=== PATIENT | male | born 2000 | race Caucasian/White ===

== ENCOUNTER 2019-10-31 10:58 | Emergency (ER) | payer SELFPAY ==
[2019-10-31 12:12] VITALS: BP 129/87
--- NOTE | 2019-10-31 12:38 | UC ---
Upper Extremity HPI - HPI Summary HPI Summary: Pt presents with c/o left upper arm and pain and occasional paresthesia "pins and needles" and falling asleep feeling over the last few days. Pt denies injury but does report that he recently began a new job that is physically more active than he is used to . - History of Current Complaint Chief Complaint: UCUpperExtremity Stated Complaint: LEFT ARM COMPLAINT Time Seen by Provider: 10/31/19 12:27 Hx Obtained From: Patient ?: No Onset/Duration: Sudden Onset, Lasting Days, Still Present Severity Initially: Mild Severity Currently: Mild Pain Intensity: 4 Location Of Pain: Is Discrete @ - left upper arm, back and radiates to left hand Character: Dull, Aching, Burning Aggravating Factor(s): Movement Alleviating Factor(s): Nothing Associated Signs And Symptoms: Positive: Numbness/Tingling Related History: Dominant Hand Right - Risk Factors Non-Orthopedic Risk Factor: Negative DVT Risk Factors: Negative Septic Arthritis Risk Factor: Negative Compartment Syndrome Risk Factors: Paresthesias - Allergies/Home Medications Allergies/Adverse Reactions: Allergies Allergy/AdvReac Type Severity Reaction Status Date / Time No Known Allergies Allergy Verified 10/31/19 12:13 PMH/Surg Hx/FS Hx/Imm Hx Previously Healthy: Yes - Surgical History Surgical History: None - Family History Known Family History: Positive: Hypertension - Social History Occupation: Employed Full-time Lives: With Family Alcohol Use: Occasionally Substance Use Type: None Smoking Status (MU): Never Smoked Tobacco Have You Smoked in the Last Year: No Household Exposure Type: Cigarettes - Immunization History Vaccination Up to Date: Yes Review of Systems All Other Systems Reviewed And Are Negative: Yes Constitutional: Positive: Negative Skin: Positive: Negative Eyes: Positive: Negative ENT: Positive: Negative Respiratory: Positive: Negative Cardiovascular: Positive: Negative Gastrointestinal: Positive: Negative Genitourinary: Positive: Negative Motor: Positive: Negative Neurovascular: Positive: Negative Musculoskeletal: Positive: Myalgia Neurological: Positive: Paresthesia Psychological: Positive: Negative Is Patient Immunocompromised?: No Physical Exam Triage Information Reviewed: Yes Appearance: Well-Appearing Vital Signs: Initial Vital Signs Temp 98.6 F 10/31/19 12:07 Pulse 62 10/31/19 12:07 Resp 18 10/31/19 12:07 BP 129/87 10/31/19 12:07 Pulse Ox 99 10/31/19 12:07 Vital Signs Reviewed: Yes Eye Exam: Normal ENT Exam: Normal Dental Exam: Normal Neck exam: Normal Respiratory Exam: Normal Cardiovascular Exam: Normal Musculoskeletal: Positive: Other: - trigger point tenderness left upper back Neurological Exam: Normal Psychological Exam: Normal Skin Exam: Normal Upper Extremity Course/Dx - Course Course Of Treatment: Pt was recommended to f/u with PCP and given PT referral - Differential Dx/Diagnosis Differential Diagnosis/HQI/PQRI: Strain, Sprain Provider Diagnosis: Trigger point of left shoulder region, Pinched nerve in shoulder Discharge ED - Sign-Out/Discharge Documenting (check all that apply): Patient Departure All imaging exams completed and their final reports reviewed: No Studies - Discharge Plan Condition: Stable Disposition: HOME Prescriptions: Cyclobenzaprine TAB* [Flexeril 10 MG TAB*] 10 mg PO TID PRN #12 tab PRN Reason: Pain - Mild Patient Education Materials: Trigger Point Pain (ED), Paresthesia (ED), Arm Pain (ED) Forms: *Work Release Referrals: [facility] [place] [facility] [Outside] No Primary Care Phys,NOPCP [Primary Care Provider] - - Billing Disposition and Condition Condition: STABLE Disposition: Home
== END 2019-10-31 12:52 | disposition home or self-care (01) ==
LOC: UCCORT 10:58
DX: G58.9 Mononeuropathy, unspecified (principal); M25.512 Pain in left shoulder
CPT/HCPCS: 99202; G0463

== ENCOUNTER 2019-11-05 10:42 | Emergency (ER) | payer OTHER ==
[2019-11-05 11:02] VITALS: BP 128/64
--- NOTE | 2019-11-05 11:15 | UC ---
Shoulder Pain HPI - HPI Summary HPI Summary: Pt presents with c/o left shoulder pain after falling from standing height at work. Pt had previous c/o left shoulder pain and was seen here on 10/31/19. 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 . - History of Current Complaint Chief Complaint: UCUpperExtremity Stated Complaint: LEFT SHOULDER PAIN Time Seen by Provider: 11/05/19 10:51 Hx Obtained From: Patient Onset/Duration: Sudden Onset, Still Present Timing: Constant Severity Initially: Moderate Severity Currently: Moderate Pain Intensity: 9 Character: Dull, Aching, Stiffness Aggravating Factor(s): Movement Alleviating Factor(s): Rest Associated Signs And Symptoms: Positive: Weakness Related History: Dominant Hand Right - Risk Factors Non-Orthopedic Risk Factor: Negative DVT Risk Factors: Negative Septic Arthritis Risk Factor: Negative - Allergies/Home Medications Allergies/Adverse Reactions: Allergies Allergy/AdvReac Type Severity Reaction Status Date / Time No Known Allergies Allergy Verified 11/05/19 10:50 Home Medications: Home Medications Acetaminophen [Acetaminophen Extra Strength] 1,000 mg PO PRN 11/05/19 [History] NK [No Home Medications Reported] 11/05/19 [History Confirmed 11/05/19] PMH/Surg Hx/FS Hx/Imm Hx Previously Healthy: Yes - Surgical History Surgical History: None - Family History Known Family History: Positive: Hypertension - Social History Occupation: Employed Full-time Lives: With Family Alcohol Use: Occasionally Substance Use Type: None Smoking Status (MU): Never Smoked Tobacco Have You Smoked in the Last Year: No Household Exposure Type: Cigarettes - Immunization History Vaccination Up to Date: Yes Review of Systems All Other Systems Reviewed And Are Negative: Yes Constitutional: Positive: Negative Skin: Positive: Negative Eyes: Positive: Negative ENT: Positive: Negative Respiratory: Positive: Negative Cardiovascular: Positive: Negative Gastrointestinal: Positive: Negative Genitourinary: Positive: Negative Motor: Positive: Decreased ROM - left shoulder, Weakness - left shoulder Neurovascular: Positive: Negative Musculoskeletal: Positive: Arthralgia, Decreased ROM, Myalgia Neurological: Positive: Negative Psychological: Positive: Negative Is Patient Immunocompromised?: No Physical Exam Triage Information Reviewed: Yes Appearance: Pain Distress - with PE Vital Signs: Initial Vital Signs Temp 97.9 F 11/05/19 10:53 Pulse 80 11/05/19 10:53 Resp 15 12/17/19 10:53 BP 128/64 11/05/19 10:53 Pulse Ox 98 11/05/19 10:53 Vital Signs Reviewed: Yes Eye Exam: Normal ENT Exam: Normal Dental Exam: Normal Neck exam: Normal Respiratory Exam: Normal Respiratory: Positive: No respiratory distress Musculoskeletal: Positive: Strength Limited @ - left shoulder, ROM Limited @ - left shoulder Neurological Exam: Normal Psychological Exam: Normal Skin Exam: Normal Diagnostics - Radiology No standard instances Radiology Interpretation Completed By: Radiologist - possible impact fracture of humeral head. Shoulder Course/Dx - Differential Dx/Diagnosis Differential Diagnosis/HQI/PQRI: Contusion, Rotator Cuff Injury, Sprain, Strain Provider Diagnosis: Impacted fracture Discharge ED - Sign-Out/Discharge Documenting (check all that apply): Patient Departure All imaging exams completed and their final reports reviewed: Yes - Discharge Plan Condition: Stable Disposition: HOME Patient Education Materials: Arm Fracture in Adults (ED), Safe Use of NSAIDs ( ED) Forms: *Work Release Referrals: Victorino Arndt MD [Medical Doctor] - As Soon As Possible No Primary Care Phys,NOPCP [Primary Care Provider] - Additional Instructions: Please follow up with Dr. Arndt as soon as possible. - Billing Disposition and Condition Condition: STABLE Disposition: Home
== END 2019-11-05 12:05 | disposition home or self-care (01) ==
LOC: UCCORT 10:42
DX: S42.92XA Fracture of left shoulder girdle, part unspecified, initial encounter for closed fracture (principal); I10 Essential (primary) hypertension; W18.30XA Fall on same level, unspecified, initial encounter; Y92.9 Unspecified place or not applicable; Y99.0 Civilian activity done for income or pay
CPT/HCPCS: 99211; G0463